=== PATIENT | female | born 1960 | race Caucasian/White ===

== ENCOUNTER → 2023-11-25 12:52 | Outpatient (REF) | payer MEDICARE, SELFPAY | LOC: WDC 12:52 | PROVIDERS: ATTENDING PHYSICIAN Obstetrics & Gynecology Gynecology; FAMILY PHYSICIAN Family Medicine | DX: Z12.31 Encounter for screening mammogram for malignant neoplasm of breast (principal) | CPT/HCPCS: 77063; 77067 ==

== ENCOUNTER 2024-02-17 14:07 | Outpatient (RCR) | payer MEDICARE, SELFPAY | END 2024-02-17 23:59 | disposition home or self-care (01) | LOC: RPT 14:07 | PROVIDERS: ATTENDING PHYSICIAN Orthopaedic Surgery; FAMILY PHYSICIAN Family Medicine | DX: M76.72 Peroneal tendinitis, left leg (principal); Z73.6 Limitation of activities due to disability; M25.572 Pain in left ankle and joints of left foot; M62.81 Muscle weakness (generalized) | CPT/HCPCS: 97110; 97162 ==

== ENCOUNTER 2024-03-19 11:08 | Outpatient (RCR) | payer MEDICARE, SELFPAY | END 2024-03-19 23:59 | disposition home or self-care (01) | LOC: RPT 11:08 | PROVIDERS: ATTENDING PHYSICIAN Orthopaedic Surgery; FAMILY PHYSICIAN Family Medicine | DX: M76.72 Peroneal tendinitis, left leg (principal); Z73.6 Limitation of activities due to disability; L40.50 Arthropathic psoriasis, unspecified; M25.572 Pain in left ankle and joints of left foot | CPT/HCPCS: 97010; 97110; 97112; 97140 ==

== ENCOUNTER 2024-04-09 10:59 | Outpatient (RCR) | payer MEDICARE, SELFPAY | END 2024-04-09 23:59 | disposition home or self-care (01) | LOC: RPT 10:59 | PROVIDERS: ATTENDING PHYSICIAN Orthopaedic Surgery; FAMILY PHYSICIAN Family Medicine | DX: M76.72 Peroneal tendinitis, left leg (principal); Z73.6 Limitation of activities due to disability; L40.50 Arthropathic psoriasis, unspecified; M25.572 Pain in left ankle and joints of left foot | CPT/HCPCS: 97010; 97110; 97140 ==

== ENCOUNTER → 2024-07-12 17:03 | Outpatient (REF) | payer MEDICARE, SELFPAY | LOC: RAD 17:03 | PROVIDERS: ATTENDING PHYSICIAN Family Medicine | DX: Z20.89 Contact with and (suspected) exposure to other communicable diseases (principal); R05.1 Acute cough; R06.2 Wheezing | CPT/HCPCS: 71046 ==

== ENCOUNTER → 2024-11-25 13:35 | Outpatient (REF) | payer MEDICARE, SELFPAY | LOC: WDC 13:35 | PROVIDERS: ATTENDING PHYSICIAN Obstetrics & Gynecology Gynecology; FAMILY PHYSICIAN Family Medicine | DX: Z12.31 Encounter for screening mammogram for malignant neoplasm of breast (principal) | CPT/HCPCS: 77063; 77067 ==